=== PATIENT | male | born 1960 | race Caucasian/White ===

== ENCOUNTER 2017-04-04 13:23 | Day surgery (SDC) | payer BC ==
[2017-04-01 15:39] LABS: BASOPHILS % (AUTO) 0.8 % (0.0-2.0); EOSINOPHILS # (AUTO) 0.2 K/uL (0.0-0.4); HEMOGLOBIN 14.5 g/dL (14.0-18.0); LYMPHOCYTES # (AUTO) 2.2 K/uL (1.0-5.5); MEAN CORPUSCULAR HEMOGLOBIN 29 pg (27-31); MEAN CORPUSCULAR HGB CONC 32 % (32-36); MEAN CORPUSCULAR VOLUME 91 fL (79.0-98.0); MONOCYTES # (AUTO) 0.4 K/uL (0.0-1.0); MONOCYTES % (AUTO) 6.2 % (1.7-9.3); NEUTROPHILS # (AUTO) 3.3 K/uL (1.8-7.7); PLATELET COUNT (AUTO) 327 K/uL (130-430); RED BLOOD CELL COUNT(AUTO) 4.97 MIL/uL (4.2-6.2); RED CELL DISTRIBUTION WIDTH 12.7 % (9.0-15.0); WHITE BLOOD COUNT (AUTO) 6.1 K/uL (4.8-10.8)
[2017-04-01 15:40] LABS: BILIRUBIN,URINE NEGATIVE (NEGATIVE); BLOOD, URINE 1+ (NEGATIVE); CLARITY/URINE CLEAR (CLEAR); COLOR,URINE YELLOW (YELLOW); GLUCOSE,URINE NEGATIVE (NEGATIVE); KETONES,URINE NEGATIVE (NEGATIVE); LEUKOCYTE ESTERASE ,URINE NEGATIVE (NEGATIVE); NITRITE, URINE NEGATIVE (NEGATIVE); PROTEIN URINE NEGATIVE (NEGATIVE); UROBILINOGEN,URINE 0.2 (0.2-1.0)
[2017-04-01 15:57] LABS: CALCIUM 9.4 mg/dL (8.4-11.0); CREATININE 0.98 mg/dL (0.55-1.30); POTASSIUM 4.4 mmol/L (3.5-5.1)
[2017-04-01 16:14] LABS: BACTERIA,URINE RARE /HPF (None Seen); RBC,URINE 0-3 /HPF (0-3); WBC,URINE 0-3 /HPF (0-3)
[2017-04-01 16:15] LABS: MUCUS,URINE None Seen /LPF (None Seen)
[~2017-04-04] VITALS: Ht 175.3 cm; Wt 123.4 kg
[~2017-04-04 13:23] MED LIST: CEFAZOLIN 2 GM IVPB PREMIX 50 ML IV ONE
[2017-04-04] MEDS ORDERED: DEXAMETHASONE SOD PHOSPHATE 4 MG/ML VIAL IVP ONE (16:07)
[2017-04-04] MEDS ORDERED: KETOROLAC TROMETHAMINE 30 MG VIAL IVP ONE (16:07)
[2017-04-04] MEDS ORDERED: SEVOFLURANE 15 MIN GAS INH ONE (16:07)
[2017-04-04] MEDS ORDERED: METOCLOPRAMIDE HCL 10 MG/2 ML VIAL IVP ONE (16:07)
[2017-04-04] MEDS ORDERED: BUPIVACAINE /PF 0.5% 30 ML VIAL INJ ONE (16:07)
[2017-04-04] MEDS ORDERED: NS IRRIG SOLN 1000 ML IR ONE (16:07)
[2017-04-04] MEDS ORDERED: LR 1,000 ML IV.SOLN IV ONE (16:07)
[2017-04-04] MEDS ORDERED: PROPOFOL 200MG/ 20ML VIAL (DIPRIVAN) IV ONE (16:07)
[2017-04-04] MEDS ORDERED: fentaNYL CITRATE/PF 100 MCG/2 ML AMP IVP ONE (16:07)
[2017-04-04] MEDS ORDERED: MIDAZOLAM HCL 5 MG/5 ML VIAL IVP ONE (16:07)
[2017-04-04] MEDS ORDERED: LR 1,000 ML IV ONE (17:03)
[2017-04-04] MEDS ORDERED: fentaNYL CITRATE/PF 100 MCG/2 ML AMP IVP PRN (17:15)
[2017-04-04] MEDS ORDERED: ONDANSETRON HCL 4 MG/2 ML VIAL IVP PRN ×2 (17:15)
[2017-04-04] MEDS ORDERED: DIPHENHYDRAMINE INJ 50 MG/ML VIAL IVP PRN (17:15)
[2017-04-04] MEDS ORDERED: KETOROLAC TROMETHAMINE 30 MG VIAL IM PRN (17:15)
[2017-04-04] MEDS ORDERED: NALOXONE HCL 0.4 MG/ML AMP (NARCAN) IVP PRN (17:15)
[2017-04-04] MEDS ORDERED: ePHEDrine sulfate 50 MG/ML VIAL IVP PRN (17:15)
[2017-04-04] MEDS ORDERED: NALBUPHINE HCL 10 MG/ML AMP IVP PRN (17:15)
[2017-04-04] MEDS ORDERED: LR 1,000 ML IV SCH (18:01)
[2017-04-04] MEDS ORDERED: DIPHENHYDRAMINE HCL 25 MG CAPSULE PO PRN (18:15)
[2017-04-04] MEDS ORDERED: HYDROcodone/ACETAMIN 5-325 MG TAB (NORCO/ VICODIN) PO PRN ×2 (18:15)
[2017-04-04] MEDS ORDERED: HYDROcodone/ACETAMIN 5-325 MG TAB (NORCO/ VICODIN) ONE (18:36)
[2017-04-04 19:07] VITALS: BP_SYST 126
== END 2017-04-04 19:55 | disposition home or self-care (01) ==
LOC: SDS 13:23
PROVIDERS: ATTEND Orthopaedic Surgery
DX: M23.231 Derangement of other medial meniscus due to old tear or injury, right knee (principal); M13.861 Other specified arthritis, right knee; I10 Essential (primary) hypertension; E78.5 Hyperlipidemia, unspecified; E66.9 Obesity, unspecified; E79.0 Hyperuricemia without signs of inflammatory arthritis and tophaceous disease; Z90.49 Acquired absence of other specified parts of digestive tract; Z98.890 Other specified postprocedural states; Z87.891 Personal history of nicotine dependence; Z88.6 Allergy status to analgesic agent; Z88.5 Allergy status to narcotic agent; Z79.1 Long term (current) use of non-steroidal anti-inflammatories (NSAID)
CPT/HCPCS: 29881; 36415; 71020; 80048; 81000; 85025; J0690; J1100; J1885; J2250; J2704; J2765; J3010; J3490; J7120